=== PATIENT | male | born 2005 | race Caucasian/White ===

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

== ENCOUNTER 2024-01-29 10:38 | Emergency (ER) | payer BC, SELFPAY ==
--- NOTE | ~2024-01-29 | XR_ITS ---
EXAMINATION: XR lumbar spine min 4V DATE: 01/29/2024 13:48 INDICATION: Low back pain. Right-sided sciatica. TECHNIQUE: 5 views of lumbar spine were obtained. COMPARISON: Lumbar spine radiographs 12/18/2023 FINDINGS: Bone alignment is normal. Vertebral body heights are normal. Intervertebral disc heights ar e normal. At L5-S1, there is mild bilateral facet joint osteoarthritis. IMPRESSION: 1. Mild facet joint osteoarthritis at L5-S1. Reviewed, dictated and finalized at location A.
[2024-01-29 10:39] VITALS: BP 139/73; PULSE 93; RESP 18; TEMP 36.6; O2SAT 100
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
[2024-01-29] MEDS: ACETAMINOPHEN 500 MG TABLET 1000 MG PO (13:35)
[2024-01-29] MEDS: methylPREDNISolone SOD SUCC 125 MG VIAL IM (13:35)
[2024-01-29] MEDS: KETOROLAC (*BKC) 60 MG/2 ML VIAL IM (13:35)
[2024-01-29] MEDS: CYCLOBENZAPRINE HCL 5 MG TABLET PO (13:35)
[2024-01-29 16:06] VITALS: BP 126/65; PULSE 67; RESP 16; O2SAT 100
== END 2024-01-29 16:07 | disposition home or self-care (01) ==
PROVIDERS: Emergency Provider Student in an Organized Health Care Education/Training Program
DX: M47.817 Spondylosis without myelopathy or radiculopathy, lumbosacral region (principal); M54.41 Lumbago with sciatica, right side
CPT/HCPCS: 72110; 96372; 99284; A9270; J1885; J2919